=== PATIENT | male | born 1975 | race Caucasian/White ===

== ENCOUNTER 2022-12-23 13:59 | Outpatient (CLI) | payer OTHER, SELFPAY ==
[2022-12-23 12:41] LABS: Albumin* 4.7 g/dL (3.3-5.0); Chloride* 105 mmol/L (96-114)
[2022-12-23 12:42] LABS: Sodium* 143 mmol/L (135-149)
[2022-12-23 12:44] LABS: Alkaline Phosphatase* 52 U/L (40-150); Aspartate Amino Transferase* 31 U/L (12-35); Bilirubin Total* 0.7 mg/dL (0.1-1.5); Blood Urea Nitrogen* 19 mg/dL (5-24); Carbon Dioxide* 30 mmol/L (20-32); Cholesterol* 155 mg/dL (90-199); Creatinine* 0.9 mg/dL (0.5-1.5); Estimated Glomerular Filt Rate 105 ml/min; Glucose* 96 mg/dL (60-115); Total Protein* 7.3 g/dL (6.0-8.3); Triglycerides* 87 mg/dL (40-149)
[2022-12-23 12:45] LABS: Alanine Aminotransferase* 31 U/L (4-50); HDL Cholesterol* 39 mg/dL (>=40); LDL Cholesterol Calculated 99 mg/dL (<100); Potassium* 5.5 mmol/L (3.6-5.1)
== END 2022-12-23 14:00 | disposition home or self-care (01) ==
PROVIDERS: PCP Family Medicine; Visit Provider Family Medicine
DX: Z00.00 Encounter for general adult medical examination without abnormal findings (principal); E78.5 Hyperlipidemia, unspecified
CPT/HCPCS: 80053; 80061

== ENCOUNTER 2023-01-27 12:12 | Outpatient (CLI) | payer OTHER, SELFPAY | END 2023-01-27 12:13 | disposition home or self-care (01) | LOC: OP CLINIC 12:13 | PROVIDERS: PCP Family Medicine; Visit Provider Internal Medicine | DX: Z12.11 Encounter for screening for malignant neoplasm of colon (principal) | CPT/HCPCS: 45378; J2250; J3010 ==

== ENCOUNTER 2023-12-07 14:31 | Outpatient (CLI) | payer OTHER, SELFPAY | END 2023-12-07 14:32 | disposition home or self-care (01) | PROVIDERS: PCP Family Medicine; Visit Provider Emergency Medicine | DX: R30.0 Dysuria; N34.2 Other urethritis | CPT/HCPCS: 87086; 87491; 87591 ==

== ENCOUNTER 2024-03-27 23:51 | Emergency (ER) | payer OTHER, SELFPAY ==
[2024-03-27 23:56] VITALS: BP 165/92; PULSE 95; RESP 16; TEMP 36.6; BMI 31.2
--- NOTE | 2024-03-28 00:10 | ED.GENADULT ---
HPI - General Adult General Chief complaint: Laceration/Wound Stated complaint: finger lac Time Seen by Provider: 03/28/24 00:09 History of Present Illness HPI narrative: Pt aox4, ABCs intact. Pt arrives for evaluation of laceration to right hand between the pinky and ring finger. Bleeding controlled. Not on blood thinners. Pt states that he caught it on a drill bit while working in his shop. 48-year-old man presenting to the emergency department following a laceration sustained to his right hand. Sounds as though neck did on a drill bit in the shop. Has managed to control the bleeding. No sensory deficits noted. No functional deficit noted. Related Data Previous Rx's ?Medication ?Instructions ?Recorded valacyclovir 1 gram tablet 1,000 mg PO TID PRN rash #90 tabs 11/19/22 (Valtrex) amlodipine 5 mg tablet 5 mg PO QDAY #90 tabs 03/28/24 atomoxetine 40 mg capsule 40 mg PO QAM #90 caps 03/28/24 (Strattera) rosuvastatin 10 mg tablet 10 mg PO QDAY #90 tabs 03/28/24 armodafinil 250 mg tablet 250 mg PO QAM #90 tabs 03/29/24 Allergies Allergy/AdvReac Type Severity Reaction Status Date / Time cephalexin Allergy Mild Rash Verified 03/28/24 16:01 Sulfa (Sulfonamide Allergy Mild Rash Verified 03/28/24 16:01 Antibiotics) Review of Systems Status of ROS: Reports: 6 or more systems reviewed and unremarkable except as noted in History and below [facility] Medical History Hypertension ?I10 - Essential (primary) hypertension (ICD-10) 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 NAD. Wound is covered. No other injuries apparent. Able to flex and extend all joints of the right hand against resistance. Interspace between ring and 5th finger with approximally 1-1/2 cm full dermal laceration that opens with hand spread. Relatively clean. Const: Vital Signs, click to edit/add: Vital Signs - 24 hr 03/27/24 23:56 Temperature 98 F Pulse Rate [Femora l] 95 Respiratory Rate 16 Blood Pressure [Ri ght Upper Arm] 165/92 H Oxygen Delivery Me thod Room Air Documenting provider has reviewed patient's vital signs: yes Course Vital Signs Vital signs: Initial Vital Signs Temperature 98 F 03/27/24 23:56 Temperature Source Temporal Artery Scan 03/27/24 23:56 Pulse Rate 95 03/27/24 23:56 Respiratory Rate 16 03/27/24 23:56 Blood Pressure 165/92 H 03/27/24 23:56 Blood Pressure Mean 116 H 03/27/24 23:56 Oxygen Delivery Method Room Air 03/27/24 23:56 Vital Signs Temperature 98 F 03/27/24 23:56 Pulse Rate 95 03/27/24 23:56 Respiratory Rate 16 03/27/24 23:56 Blood Pressure 165/92 H 03/27/24 23:56 Oxygen Delivery Method Room Air 03/27/24 23:56 Temperature 98 F 03/27/24 23:56 Pulse Rate 95 03/27/24 23:56 Respiratory Rate 16 03/27/24 23:56 Blood Pressure 165/92 H 03/27/24 23:56 Oxygen Delivery Method Room Air 03/27/24 23:56 Medications Administered Medications: Discontinued Medications Generic Name Dose Route Start Last Admin Trade Name Luis PRN Reason Stop Dose Admin Lidocaine/Epinephrine 5 ml 03/28/24 00:13 03/28/24 00:36 Lidocaine 1%-Epi 1:100,000 20 Ml INFILTRATI 03/28/24 00:14 5 ml ONCE ONE Administration Medical Decision Making MDM Narrative Medical decision making narrative: Discussed methods of repair. Suturing preferred. Injected with lidocaine with epinephrine. Cleansed further with Shur-Clens equivalent solution. Sutured with interrupted Ethilon. Well approximated. Control of bleeding. Bandage placed. See patient discharge plan for further discussion/plan Discharge Plan Discharge Clinical Impression: Hand laceration Patient Disposition: Home, Self-Care Condition: Improved Additional Instructions: sutures out in 10 days. antibiotic ointment for 4-5 days and then to a dry dressing. ok to get wet but try not to soak while sutures are in. Watch for spreading redness after 2 days accompanied by heat, swelling, marked increase in pain, purulent drainage. Prescriptions: No Action atomoxetine [Strattera] 40 mg capsule 40 mg PO QAM Qty: 90 1RF rosuvastatin 10 mg tablet 10 mg PO QDAY Qty: 90 1RF amlodipine 5 mg tablet 5 mg PO QDAY Qty: 90 4RF valacyclovir [Valtrex] 1 gram tablet 1,000 mg PO TID PRN (Reason: rash) Qty: 90 1RF armodafinil 250 mg tablet 250 mg PO QAM Qty: 90 1RF Follow Up/Referrals: Zach Foster MD [Primary Care Provider] - Stand Alone Forms: [facility] Info Instructions
== END 2024-03-28 01:20 | disposition home or self-care (01) ==
PROVIDERS: Emergency Provider Family Medicine; PCP Family Medicine
DX: S61.411A Laceration without foreign body of right hand, initial encounter (principal); W29.8XXA Contact with other powered hand tools and household machinery, initial encounter
CPT/HCPCS: 12001; 99283; 99284

== ENCOUNTER 2024-07-18 08:15 | Outpatient (CLI) | payer OTHER, SELFPAY | END 2024-07-18 08:16 | disposition home or self-care (01) | LOC: NFLDREF 07-20 12:37 | PROVIDERS: PCP Family Medicine; Referring Provider Family Medicine; Visit Provider Family Medicine | DX: Z00.00 Encounter for general adult medical examination without abnormal findings (principal); E78.5 Hyperlipidemia, unspecified; E78.00 Pure hypercholesterolemia, unspecified; Z12.5 Encounter for screening for malignant neoplasm of prostate | CPT/HCPCS: 80053; 80061; G0103 ==

== ENCOUNTER 2024-12-09 06:16 | Day surgery (SDC) | payer OTHER, SELFPAY ==
[2024-12-09] VITALS (8 sets, daily range): BP systolic 125–152; BP diastolic 79–94; PULSE 82–90; RESP 16–20; TEMP 36.4–36.8; O2SAT 92–100; BMI 30.9
[2024-12-09] MEDS: LIDOCAINE 1%-EPI 1:100,000 20 ML INFILTRATI (06:45)
[2024-12-09] MEDS: ETHYL CHLORIDE 1 APPLICATION 1 APPLIC TOPICAL (06:45)
[2024-12-09] MEDS: BUPIVACAINE 0.5% 30 ML INJECTION (06:45)
[2024-12-09] MEDS: BACITRACIN OINTMENT BULK TUBE 1 APPLIC TOPICAL (07:42)
--- NOTE | 2024-12-09 08:04 | SUR.PHASEII ---
Patient returned to Phase II in wheelchair, went directly to recliner chair. Patient verbalized understanding of discharge instructions and readiness to be discharged.
--- NOTE | 2024-12-09 08:04 | SUR.PHASEII ---
Patient directly to recliner chair after being brought back to Phase II in wheelchair. Patient verbalized readiness to be discharged and understanding of discharge instructions.
--- NOTE | 2024-12-09 08:47 | P.ORPRC_ITS ---
Procedure Note Date of procedure: 12/09/24 Procedure: PREOPERATIVE DIAGNOSIS: 1. Right carpal tunnel syndrome POSTOPERATIVE DIAGNOSIS: 1. Right carpal tunnel syndrome PROCEDURE: 1. Right endoscopic carpal tunnel release (nanoscope) SURGEON: Dave Reyes MD. [employer] PROFESSOR: Peter Ni PA-C ANESTHESIA: Local anesthetic (50:50 mixture of 1% lidocaine with epi and 0.5% marcaine plain)-10 mL total IMPLANTS: None EBL: 2 mL TOURNIQUET: None COMPLICATIONS: None evident INDICATIONS: The patient is a pleasant 49-year-old male who has experienced right hand numbess/tingling affecting the radial 3.5 digits for multiple months. It has progressively gotten worse. Nonoperative management has been tried and failed, and therefore surgery was recommended. DESCRIPTION OF PROCEDURE: Following a thorough discussion of risks, benefits, and alternatives consent was obtained and the operative extremity was marked. The patient was brought to the operating room and placed supine on the operating table. Local anesthesia induction was undertaken in preop holding. No antibio tics were administered as this was planned to be a local case only. Proper time-out was performed identifying proper patient, site, and procedure. The operative extremity was prepped and draped in the appropriate sterile fashion using ChloraPrep. A transverse incision was made at the volar distal wrist crease. Sharp incision through skin and blunt dissection through the subcutaneous tissue allowed identification of the antebrachial fascia. This was bluntly divided and retracted. A dilator was passed distally in the planned trajectory followed by a synovial dissector and finally the endoscopic carpal tunnel device. Excellent visualization of the transverse carpal ligament was obtained. The device was passed down to Cortez's cardinal line to the distal extent of the TCL where the blade was deployed. The blade was elevated under direct visualization and brought proximally through the ligament. A 2nd pass was required due to the thickness of the ligament to get complete release. Upon complete release, a much softer palpable palm skin was appreciated and, as is typical, the fat encroached upon our viewing window. A hemostat was passed to confirm complete release palpably. Hemostasis confirmed. Closure performed with 4-0 nylon in interrupted fashion. Soft dressing was applied. Patient was transferred to the recovery room in stable condition. PLAN: 1. Encourage elevation of the operative extremity. 2. Range of motion of the fingers and hand/wrist as tolerated. 3. Ibuprofen/acetaminophen and/or oxycodone as needed for pain control. 4. Follow up with PA visit or nurse visit in 12-16 days for wound check and suture removal.
== END 2024-12-09 07:58 | disposition home or self-care (01) ==
PROVIDERS: PCP Family Medicine; Visit Provider Orthopaedic Surgery Sports Medicine
PROC: 01N54ZZ Release Median Nerve, Percutaneous Endoscopic Approach (ICD-10-PCS; CPT 29848; principal; 2024-12-09 07:15)
DX: G56.01 Carpal tunnel syndrome, right upper limb (principal)
CPT/HCPCS: 64721; J0665

== ENCOUNTER 2025-01-27 12:49 | Outpatient (CLI) | payer OTHER, SELFPAY | END 2025-01-27 12:50 | disposition home or self-care (01) | LOC: MRI 12:53 | PROVIDERS: PCP Family Medicine; Visit Provider Emergency Medicine | DX: M25.511 Pain in right shoulder (principal); M75.101 Unspecified rotator cuff tear or rupture of right shoulder, not specified as traumatic; M65.911 Unspecified synovitis and tenosynovitis, right shoulder | CPT/HCPCS: 73221 ==

== ENCOUNTER 2025-03-26 14:45 | Outpatient (RCR) | payer OTHER, SELFPAY | END 2025-07-24 23:59 | disposition home or self-care (01) | PROVIDERS: PCP Family Medicine; Visit Provider Orthopaedic Surgery Sports Medicine | DX: S46.011D Strain of muscle(s) and tendon(s) of the rotator cuff of right shoulder, subsequent encounter (principal); Z02.6 Encounter for examination for insurance purposes; Z51.89 Encounter for other specified aftercare | CPT/HCPCS: 97110; 97162 ==

== ENCOUNTER 2025-09-29 08:23 | Outpatient (CLI) | payer OTHER, SELFPAY | END 2025-09-29 08:24 | disposition home or self-care (01) | LOC: NFLDREF 10-02 10:52 | PROVIDERS: PCP Family Medicine; Referring Provider Family Medicine; Visit Provider Family Medicine | DX: E78.00 Pure hypercholesterolemia, unspecified (principal); I10 Essential (primary) hypertension | CPT/HCPCS: 80053; 80061; G0103 ==